=== PATIENT | female | born 1975 | race Caucasian/White ===

== ENCOUNTER 2023-11-05 07:26 | Day surgery (SDC) | payer OTHER ==
[2023-11-03 13:59] LABS: BASOPHILS # (AUTO) 0.03 K/uL (0.00-0.20); BASOPHILS % (AUTO) 0.5 % (0.0-5.0); EOSINOPHILS # (AUTO) 0.15 K/uL (0.00-0.70); EOSINOPHILS % (AUTO) 2.3 % (0.0-8.0); HEMATOCRIT 42.1 % (36-48); IMMATURE GRANULOCYTE ABSOLUTE 0.02 K/uL (0-1); LYMPHOCYTES # (AUTO) 2.5 K/uL (1.0-4.8); LYMPHOCYTES % (AUTO) 37.8 % (21.0-51.0); MEAN CORPUSCULAR HEMOGLOBIN 33.6 pg (27.0-33.0); MEAN CORPUSCULAR HGB CONC 34.2 g/dL (32.0-36.0); MEAN CORPUSCULAR VOLUME 98.4 fL (79-99); MONOCYTES # (AUTO) 0.4 K/uL (0.1-1.0); MONOCYTES % (AUTO) 6.4 % (3.0-13.0); NEUTROPHILS # (AUTO) 3.5 K/uL (1.8-7.7); NEUTROPHILS % (AUTO) 52.7 % (40.0-77.0); PLATELET COUNT (AUTO) 317 K/uL (130-400); RED BLOOD CELL COUNT(AUTO) 4.28 MIL/uL (4.00-5.50); RED CELL DISTRIBUTION WIDTH 11.9 % (11.0-15.5); WHITE BLOOD COUNT (AUTO) 6.6 K/uL (4.8-10.8)
[2023-11-03 14:20] LABS: CREATININE 0.8 mg/dL (0.5-1.0); POTASSIUM 3.7 mmol/L (3.5-5.1)
[2023-11-03 14:38] VITALS: BP 119/71; PULSE 69; RESP 16; TEMP 97.6
[~2023-11-05] VITALS: Ht 162.6 cm; Wt 75.2 kg
[2023-11-05] VITALS (18 sets, daily range): BP systolic 93–125; BP diastolic 42–77; PULSE 66–83; RESP 10–18; TEMP 97.6–97.7
[2023-11-05] MEDS: BUPIvacaine/PF 0.25% 30ML VIAL IJ ONE
[~2023-11-05 07:26] MED LIST: ACET-2521 PO; DICY10CA2 PO; DOCU-280 PO; ESOM40CA66 PO; MEDR10TA11 PO; METH18TA23 PO; PRENATAL PO; SUMA50TA17 PO; [UNRECOGNIZED DRUG - OTHER] PO
[2023-11-05] MEDS ORDERED: LIDOCAINE PF 100MG/5ML (2%) SYRINGE 5ML ONE (08:20)
[2023-11-05] MEDS ORDERED: GLYCOPYRROLATE 0.2 MG/ML 5 ML VIAL ONE (08:20)
[2023-11-05] MEDS ORDERED: SUCCINYLCHOLINE CHLORIDE 20 MG/ML 10 ML VIAL ONE (08:20)
[2023-11-05] MEDS ORDERED: dexaMETHasone SOD PHOSPHATE 10MG/ML 1ML VIAL ONE (08:20)
[2023-11-05] MEDS ORDERED: MIDAZOLAM HCL 1 MG/ML 2ML VIAL ONE (08:20)
[2023-11-05] MEDS ORDERED: NEOSTIGMINE METHYLSULFATE 1MG/ML IV ONE (08:21)
[2023-11-05] MEDS ORDERED: ONDANSETRON 4MG INJ ONE (08:21)
[2023-11-05] MEDS ORDERED: rocuRONium bROMide 10MG/1ML 5ML VL ONE (08:21)
[2023-11-05] MEDS ORDERED: proPOFol 10 MG/ML 20ML VIAL IV ONE (08:21)
[2023-11-05] MEDS ORDERED: FENTanyl CITRate PF 50 MCG/1 ML 2ML VIAL ONE (08:21)
[2023-11-05] MEDS: ceFAZolin SODIUM 2 GM VIAL ONE (08:36)
[2023-11-05] MEDS: LACTATED RINGERS 1000ML 1,000 ML IV ONE (08:36)
[2023-11-05] MEDS: INDOCYANINE GREEN 25 MG VIAL IJ ONE (09:20)
[2023-11-05] MEDS ORDERED: FENTanyl CITRate PF 50 MCG/1 ML 5ML AMP IV ONE (10:49)
[2023-11-05] MEDS: ONDANSETRON 4MG INJ ONE (12:19)
[2023-11-05] MEDS: MEPERIDINE-PF 25 MG/ML SYG ONE (12:19)
[2023-11-05] MEDS: ketOROlac 30MG VIAL (30MG/ML) ONE (12:20)
[2023-11-05] MEDS: metoCLOPRAmide 10 MG/2 ML VIAL ONE (12:33)
[2023-11-05] MEDS: acetaMINOPHEN 1,000 MG/100 ML VIAL IV ONE (12:47)
== END 2023-11-05 13:45 | disposition home or self-care (01) ==
LOC: DAH 07:26
PROVIDERS: ATTEND Surgery
DX: K82.8 Other specified diseases of gallbladder (principal); K81.1 Chronic cholecystitis; K58.9 Irritable bowel syndrome, unspecified; K21.9 Gastro-esophageal reflux disease without esophagitis; R14.0 Abdominal distension (gaseous); R10.13 Epigastric pain; F41.9 Anxiety disorder, unspecified; F32.A Depression, unspecified; Z98.1 Arthrodesis status; Z79.899 Other long term (current) drug therapy
CPT/HCPCS: 80048; 84703; 85025; 86850; 86900; 86901; 36415; 93005; 47563; 88304; A6260; A4663; J7030; J7120 ×2; A4215 ×2; J3010 ×2; J1100; J0330; J0665; J3490 ×2; J2001; J2250; J2704; J2405 ×2; J1885; J2710; J2175; J2765; J0690; A4649; A4223; A4213; A4222; A4221; A4600; S2900; G0168